=== PATIENT | female | born 1945 | race Caucasian/White ===

== ENCOUNTER 2023-12-22 12:08 | Inpatient (IN) | payer MEDICARE ==
[~2023-12-22] VITALS: Ht 175.3 cm; Wt 69.9 kg
[2023-12-22 12:24] VITALS: BP 119/49
[2023-12-22] MEDS ORDERED: ASPIRIN CHEWABL81 MG PO (12:28)
[2023-12-22] MEDS ORDERED: Piperacillin Sodium/Tazobact 50 ML IV ONE (12:50)
[2023-12-22] MEDS ORDERED: Vancomycin Hydrochloride 250 ML IV ONE (12:50)
[2023-12-22 13:17] LABS: BASO # 0.1 10*3/uL (0.0-0.1); BASO % 0.4 % (0.0-1.0); EOS % 0.3 % (1.0-4.0); HEMATOCRIT 38.4 % (37.0-47.0); LYMPH # 0.7 10*3/uL (1.3-4.4); LYMPH % 6.1 % (27.0-41.0); MEAN CELL VOLUME 91.9 fl (81.0-99.0); MEAN CORPUSCULAR HGB 29.4 pg (27.0-31.0); MEAN PLATELET VOLUME 9.7 fl (9.6-12.3); MONO # 0.6 10*3/uL (0.1-1.0); MONO % 4.7 % (3.0-9.0); NEUT # 10.7 10*3/uL (2.3-7.9); NEUT % 87.8 % (47.0-73.0); PLATELET COUNT AUTOMATED 210 10*3/uL (130-400); RED BLOOD COUNT 4.18 10*6/uL (4.10-5.10); RED CELL DISTRI WIDTH 13.5 % (0-14.5); WHITE BLOOD COUNT 12.2 10*3/uL (4.8-10.8)
[2023-12-22 13:39] LABS: BUN 22 mg/dl (9-23); CHLORIDE 105 mmol/L (98-107); POTASSIUM 3.4 mmol/L (3.4-5.1)
[2023-12-22] MEDS ORDERED: SODIUM CHLORIDE 0.9% 1,000 ML IV SCH (13:50)
[2023-12-22 15:02] VITALS: BP 105/52
[2023-12-22] MEDS ORDERED: ACETAMINOPHEN 325 MG TAB PO PRN (15:50)
[2023-12-22] MEDS ORDERED: TEMAZEPAM 15 MG CAP PO PRN (15:50)
[2023-12-22 16:00] VITALS: BP 128/70
[2023-12-22 18:50] VITALS: BP 128/70
[2023-12-22 20:00] VITALS: BP 132/53
[2023-12-22] MEDS ORDERED: Piperacillin Sodium/Tazobact 50 ML IV SCH (20:00)
[2023-12-23] VITALS: BP 148/62
[2023-12-23 05:28] LABS: ALKALINE PHOSPHATASE 63 U/L (46-116); BUN 16 mg/dl (9-23); CHLORIDE 109 mmol/L (98-107); CHOLESTEROL 125 mg/dL (<200); LDL CHOLESTEROL 69 mg/dL (9-159); SGPT/ALT 13 U/L (5-49); TOTAL PROTEIN 5.7 gm/dL (6.0-8.0); TRIGLYCERIDES 83 mg/dl (<150)
[2023-12-23] MEDS ORDERED: VANCOMYCIN/WATER FOR INJ (PEG) 250 ML IV SCH (06:00)
[2023-12-23 06:14] LABS: ACT PARTIAL THROMBO TIME 29.9 SECONDS (20.0-32.1); BASO # 0.1 10*3/uL (0.0-0.1); BASO % 0.6 % (0.0-1.0); EOS # 0.2 10*3/uL (0.0-0.4); EOS % 2.1 % (1.0-4.0); HEMATOCRIT 32.8 % (37.0-47.0); LYMPH # 1.3 10*3/uL (1.3-4.4); LYMPH % 14.5 % (27.0-41.0); MEAN CELL VOLUME 90.1 fl (81.0-99.0); MEAN CORPUSCULAR HGB 29.9 pg (27.0-31.0); MEAN CORPUSCULAR HGB CONC 33.2 g/dl (33.0-37.0); MEAN PLATELET VOLUME 10.4 fl (9.6-12.3); MONO # 0.7 10*3/uL (0.1-1.0); MONO % 8.6 % (3.0-9.0); NEUT # 6.4 10*3/uL (2.3-7.9); NEUT % 73.9 % (47.0-73.0); PLATELET COUNT AUTOMATED 197 10*3/uL (130-400); RED BLOOD COUNT 3.64 10*6/uL (4.10-5.10); RED CELL DISTRI WIDTH 13.7 % (0-14.5); WHITE BLOOD COUNT 8.6 10*3/uL (4.8-10.8)
[2023-12-23] MEDS ORDERED: POTASSIUM PHOSPHATE 20 MMOL in SODIUM CHLORIDE 0.9% 500 ML IV ONE (07:50)
[2023-12-23 08:00] VITALS: BP 115/53
[2023-12-23] MEDS ORDERED: Enoxaparin Sodium 40 MG/0.4 ML SYR SC SCH (10:00)
[2023-12-23] MEDS ORDERED: Vitamin D 1,000 IU TAB (25 MCG) PO SCH (10:00)
[2023-12-23 12:27] VITALS: BP 115/74
[2023-12-23 16:00] VITALS: BP 137/65
[2023-12-23] MEDS ORDERED: diphenhydrAMINE HCL;LIDO HCL 1 OZ OZ PO SCH (18:00)
[2023-12-23 20:00] VITALS: BP 146/62
[2023-12-24] VITALS: BP 163/73
[2023-12-24 07:54] LABS: BUN 11 mg/dl (9-23); CHLORIDE 112 mmol/L (98-107); POTASSIUM 3.9 mmol/L (3.4-5.1)
[2023-12-24 08:00] VITALS: BP 163/65
[2023-12-24 12:00] VITALS: BP 140/73
[2023-12-24 16:00] VITALS: BP 134/88
[2023-12-24 20:00] VITALS: BP 161/70
[2023-12-25] VITALS: BP 153/68
[2023-12-25] MEDS ORDERED: VANCOMYCIN/WATER FOR INJ (PEG) 300 ML IV SCH (06:00)
[2023-12-25 08:00] VITALS: BP 165/75
[2023-12-25 11:59] VITALS: BP 174/74
[2023-12-25 16:00] VITALS: BP 151/69
[2023-12-25 20:00] VITALS: BP 133/79
[2023-12-26] VITALS: BP 168/75
[2023-12-26 05:36] LABS: BUN 10 mg/dl (9-23); CHLORIDE 110 mmol/L (98-107); POTASSIUM 4.1 mmol/L (3.4-5.1)
[2023-12-26 08:49] VITALS: BP 160/30
[2023-12-26 12:31] VITALS: BP 154/70
[2023-12-26 17:05] VITALS: BP 140/60
[2023-12-26 20:00] VITALS: BP 159/72
[2023-12-27] VITALS: BP 168/81
[2023-12-27 08:00] VITALS: BP 182/82
[2023-12-27 08:15] VITALS: BP 162/78
[2023-12-27] MEDS ORDERED: ASPIRIN, CHEWABLE 81 MG TAB PO SCH (10:00)
[2023-12-27] MEDS ORDERED: CIPRO500 MG PO (11:18)
[2023-12-27] MEDS ORDERED: VIBRA-TAB100 MG PO (11:18)
[2023-12-27] MEDS ORDERED: ZESTRIL10 MG PO (11:18)
[2023-12-27] MEDS ORDERED: LISINOPRIL 10 MG TAB PO SCH (11:20)
[2023-12-27 12:00] VITALS: BP 141/69
== END 2023-12-27 12:46 | disposition home or self-care (01) | DRG 871 ==
LOC: ED 12:08 → EDHOLD 15:24 → 4E 15:24
PROVIDERS: Nurse Practitioner; Student in an Organized Health Care Education/Training Program; ADMIT Family Medicine; ATTEND Family Medicine
DX: A41.9 Sepsis, unspecified organism (principal); E43 Unspecified severe protein-calorie malnutrition; E87.20 Acidosis, unspecified; L03.115 Cellulitis of right lower limb; Z68.44 Body mass index [BMI] 60.0-69.9, adult; F41.1 Generalized anxiety disorder; J44.9 Chronic obstructive pulmonary disease, unspecified; F03.90 Unspecified dementia, unspecified severity, without behavioral disturbance, psychotic disturbance, mood disturbance, and anxiety; M19.90 Unspecified osteoarthritis, unspecified site; D64.9 Anemia, unspecified; E77.8 Other disorders of glycoprotein metabolism; Z79.899 Other long term (current) drug therapy; Z79.01 Long term (current) use of anticoagulants; Z79.2 Long term (current) use of antibiotics; Z88.8 Allergy status to other drugs, medicaments and biological substances; Z91.09 Other allergy status, other than to drugs and biological substances